=== PATIENT | female | born 1945 | race Caucasian/White ===

== ENCOUNTER 2019-07-16 10:03 | Outpatient (CLI) | payer MEDICARE, OTHER ==
--- NOTE | 2019-07-16 11:09 | CT ---
CT ABDOMEN AND PELVIS WITH ORAL AND IV CONTRAST: HISTORY: Carcinoid tumor. Patient also has history of breast cancer with lumpectomy COMPARISON: 09/11/2014 FINDINGS: There is minimal dependent changes in the left lung base. The tiny hypodensity in the right lobe of t he liver noted on the previous exam is not definitely seen on the current study. The liver, spleen, pancreas, adrenal glands and left kidney appear normal. No calcified gallstones are seen. The 14 mm h ypodensity in the right kidney is stable, likely cyst. No free air, free fluid or lymphadenopathy seen in the abdomen or pelvis. There are vascular calcific ations without evidence of aneurysmal dilatation of the abdominal aorta. Degenerative changes are present in the spine. No osteolytic or osteoblastic lesions are seen. The small bowel loops are not a bnormally dilated. There is colonic diverticulosis. A normal-appearing appendix is present. The patient is post hysterectomy. IMPRESSION: No evidence of metastatic disease.
== END 2019-07-16 10:04 | disposition home or self-care (01) ==
LOC: BICCT 10:03
PROVIDERS: ATTEND Internal Medicine Gastroenterology
DX: D3A.00 Benign carcinoid tumor of unspecified site (principal)
CPT/HCPCS: 74177; 82565

== ENCOUNTER 2020-06-05 15:09 | Outpatient (CLI) | payer MEDICARE, OTHER | END 2020-06-05 15:10 | disposition home or self-care (01) | LOC: CTENTCT 15:09 | PROVIDERS: ATTEND Otolaryngology Plastic Surgery within the Head & Neck | DX: J32.9 Chronic sinusitis, unspecified (principal) | CPT/HCPCS: 70486 ==

== ENCOUNTER 2020-06-30 13:51 | Outpatient (CLI) | payer MEDICARE, OTHER | END 2020-06-30 13:52 | disposition home or self-care (01) | LOC: CTENTCT 13:51 | PROVIDERS: ATTEND Otolaryngology Plastic Surgery within the Head & Neck | DX: J32.9 Chronic sinusitis, unspecified (principal) | CPT/HCPCS: 70486 ==

== ENCOUNTER 2021-10-01 11:54 | Outpatient (CLI) | payer MEDICARE, OTHER | END 2021-10-01 11:55 | disposition home or self-care (01) | LOC: BICMAMMO 11:54 | PROVIDERS: ATTEND Family Medicine | DX: Z12.31 Encounter for screening mammogram for malignant neoplasm of breast (principal); Z85.3 Personal history of malignant neoplasm of breast | CPT/HCPCS: 77063; 77067 ==

== ENCOUNTER 2022-12-01 10:58 | Outpatient (CLI) | payer MEDICARE, OTHER | END 2022-12-01 10:59 | disposition home or self-care (01) | LOC: BICMAMMO 10:58 | PROVIDERS: ATTEND Family Medicine | DX: Z12.31 Encounter for screening mammogram for malignant neoplasm of breast (principal); Z85.3 Personal history of malignant neoplasm of breast; Z90.13 Acquired absence of bilateral breasts and nipples | CPT/HCPCS: 77063; 77067 ==

== ENCOUNTER 2023-03-21 08:34 | Outpatient (CLI) | payer MEDICARE, OTHER | END 2023-03-21 08:35 | disposition home or self-care (01) | LOC: BICCT 08:34 | PROVIDERS: ATTEND Physician Assistant Medical | DX: D3A.00 Benign carcinoid tumor of unspecified site (principal); R10.84 Generalized abdominal pain | CPT/HCPCS: 74177; 82565 ==

== ENCOUNTER 2023-12-21 14:00 | Outpatient (CLI) | payer MEDICARE, OTHER | END 2023-12-21 14:01 | disposition home or self-care (01) | LOC: BICMAMMO 14:00 | PROVIDERS: ATTEND Internal Medicine Hematology & Oncology | DX: Z12.31 Encounter for screening mammogram for malignant neoplasm of breast (principal); Z85.3 Personal history of malignant neoplasm of breast; Z98.890 Other specified postprocedural states | CPT/HCPCS: 77063; 77067 ==